=== PATIENT | female | born 1965 | race Caucasian/White ===

== ENCOUNTER → 2022-06-03 | Outpatient (CLI) | payer MEDICAID ==
--- NOTE | 2022-06-04 07:08 | XR ---
EXAMINATION TYPE: XR knee complete LT DATE OF EXAM: 06/03/2022 4:33 PM INDICATION: Patient age:Female; 56 years old; Reason for study: [id number] LT KNEE EFFUSION; [facility]. COMPARISON: None. TECHNIQUE: The Left knee(s) was examined in 3 projections. Frontal, lateral and oblique. FINDINGS: No acute fracture or dislocation. No joint effusion. Mild anterior knee soft tissue edema . No radiopaque foreign bodies. IMPRESSION: 1. No acute fracture or dislocation. 2. Mild anterior knee soft tissue edema.
== END | disposition home or self-care (01) ==
LOC: RADXRYALE 16:23
PROVIDERS: ATTEND Internal Medicine
DX: M25.462 Effusion, left knee (principal)